=== PATIENT | male | born 1940 | race Caucasian/White ===

== ENCOUNTER 2019-04-19 17:18 | Emergency (ER) | payer OTHER, MEDICARE ==
[~2019-04-19] VITALS: Ht 188 cm; Wt 108.9 kg
[~2019-04-19 17:18] MED LIST: ACET325 PO; ASPI81CH PO; ATOR40TA PO; CALCAVITD PO; Calcium Carbon650 MG PO; DOCU100 PO; LAVAP17G PO; MELO7.5 PO; MULVITMIND PO; ONDA8 PO; OXYC5 PO; PANT40 PO; SENN187 PO; VENLAFAXINE HC150 MG PO; VENLAFAXINE HCL PO; XARELTO15 MG PO; Zoladex10.8 MG SC
[2019-04-19 19:02] LABS: Source, Urine Catheter
[2019-04-19 19:10] LABS: Bilirubin, Urine Neg (Neg); Blood, Urine 5+ (Neg); Glucose Qualitative, Urine Neg (Neg); Ketones, Urine 1+ (Neg); Leukocyte Esterase, Urine 2+ (Neg); Nitrite, Urine Pos (Neg); Protein, Urine 3+ (Neg); Urobilinogen, Urine NORM (Normal)
[2019-04-19 19:26] LABS: Appearance, Urine Cloudy (Clear); Color, Urine Red (P-Yellow)
[2019-04-19 19:29] LABS: Red Blood Cells, Urine TNTC /hpf (0-2); Squamous Epithelial Cells Not Seen /hpf (Few)
[2019-04-19 19:30] LABS: Bacteria Few /hpf
[2019-04-19 20:23] LABS: BASOPHILS ABSOLUTE AUTO 0.03 K/mm3 (0.00-0.23); BASOPHILS PERCENT AUTO 1 % (0-2); EOSINOPHILS ABSOLUTE AUTO 0.17 K/mm3 (0.00-0.68); EOSINOPHILS PERCENT AUTO 3 % (0-6); Hematocrit 38.2 % (37.0-53.0); Hemoglobin 12.2 g/dL (13.5-17.5); IMMATURE GRAN ABSOLUTE AUTO 0.05 K/mm3 (0.00-0.10); IMMATURE GRAN PERCENT AUTO 1 % (0-1); LYMPHOCYTES ABSOLUTE AUTO 0.95 K/mm3 (0.84-5.20); LYMPHOCYTES PERCENT AUTO 14 % (21-46); MONOCYTES ABSOLUTE AUTO 0.49 K/mm3 (0.16-1.47); MONOCYTES PERCENT AUTO 7 % (4-13); Mean Corpuscular HGB 28.7 pg (26.0-34.0); Mean Corpuscular HGB Conc 31.9 g/dL (31.5-36.5); Mean Corpuscular Volume 90 fL (80-100); Mean Platelet Volume 8.9 fL (9.1-12.4); NEUTROPHILS ABSOLUTE AUTO 4.96 K/mm3 (1.96-9.15); NEUTROPHILS PERCENT AUTO 74 % (41-73); Platelet Count 267 K/mm3 (150-400); RDW Coefficient Variation 14.1 % (11.7-14.2); RDW Standard Deviation 46.2 fL (35.1-46.3); Red Blood Cell Count 4.25 M/mm3 (4.30-5.90); White Blood Cell Count 6.65 K/mm3 (4.00-11.30)
[2019-04-19 20:38] LABS: Anion Gap 5 mmol/L (6-16); Blood Urea Nitrogen 23 mg/dL (8-24); CO2, Blood 28 mmol/L (21-32); Calcium, Blood 8.8 mg/dL (8.5-10.1); Chloride, Blood 104 mmol/L (98-108); Creatinine, Blood 0.96 mg/dL (0.60-1.20); Glomerular Filtration Rate >60 (60-); Glucose, Blood 95 mg/dL (70-99); Potassium, Blood 4.2 mmol/L (3.5-5.5); Sodium, Blood 137 mmol/L (136-145)
[2019-04-19] MEDS ORDERED: CEPH500 PO (22:12)
== END 2019-04-19 23:12 | disposition home or self-care (01) ==
LOC: ER 17:18
PROVIDERS: Emergency Medicine
DX: N39.0 Urinary tract infection, site not specified (principal); I10 Essential (primary) hypertension; J44.9 Chronic obstructive pulmonary disease, unspecified; Z79.899 Other long term (current) drug therapy; Z79.82 Long term (current) use of aspirin; Z87.891 Personal history of nicotine dependence
CPT/HCPCS: 36415; 51702; 74174; 80048; 81001; 85025; 87077; 87086; 87186; 96365-59; 99284-25; J0696; Q9967

== ENCOUNTER 2020-08-17 18:10 | Emergency (ER) | payer OTHER, MEDICARE ==
[~2020-08-17] VITALS: Ht 188 cm; Wt 90.7 kg
[~2020-08-17 18:10] MED LIST changes: +CEPH500 PO
[2020-08-17 20:17] LABS: Source, Urine Clean Catch
[2020-08-17 20:53] LABS: Bilirubin, Urine Neg (Neg); Blood, Urine 5+ (Neg); Glucose Qualitative, Urine Neg (Neg); Ketones, Urine Neg (Neg); Leukocyte Esterase, Urine 3+ (Neg); Nitrite, Urine Pos (Neg); Protein, Urine 2+ (Neg); Specific Gravity, Urine 1.015 (1.003-1.022); Urobilinogen, Urine NORM (Normal)
[2020-08-17 21:05] LABS: Appearance, Urine Cloudy (Clear); Color, Urine Yellow (P-Yellow)
[2020-08-17 21:06] LABS: Bacteria Many /hpf; Calcium Oxalate Crystals Few /hpf; Red Blood Cells, Urine 0-2 /hpf (0-2); Squamous Epithelial Cells Not Seen /hpf (Few); White Blood Cells, Urine TNTC /hpf (0-5)
[2020-08-17] MEDS ORDERED: CEFP200 PO (21:46)
== END 2020-08-17 21:58 | disposition home or self-care (01) ==
LOC: ER 18:10
PROVIDERS: Physician Assistant
DX: N39.0 Urinary tract infection, site not specified (principal); R32 Unspecified urinary incontinence; I10 Essential (primary) hypertension; J44.9 Chronic obstructive pulmonary disease, unspecified; Z79.899 Other long term (current) drug therapy; Z87.891 Personal history of nicotine dependence
CPT/HCPCS: 51701; 51798; 81001; 87077; 87086; 87186; 99283-25; A9270

== ENCOUNTER 2020-09-07 18:31 | Inpatient (IN) | payer OTHER, MEDICARE ==
[~2020-09-07] VITALS: Ht 182.9 cm; Wt 93.2 kg
[~2020-09-07 18:31] MED LIST changes: +CEFP200 PO
[2020-09-07 19:07] LABS: BASOPHILS ABSOLUTE AUTO 0.05 K/mm3 (0.00-0.23); BASOPHILS PERCENT AUTO 1 % (0-2); EOSINOPHILS ABSOLUTE AUTO 0.05 K/mm3 (0.00-0.68); EOSINOPHILS PERCENT AUTO 1 % (0-6); IMMATURE GRAN ABSOLUTE AUTO 0.06 K/mm3 (0.00-0.10); IMMATURE GRAN PERCENT AUTO 1 % (0-1); LYMPHOCYTES ABSOLUTE AUTO 1.24 K/mm3 (0.84-5.20); LYMPHOCYTES PERCENT AUTO 12 % (21-46); MONOCYTES ABSOLUTE AUTO 0.68 K/mm3 (0.16-1.47); MONOCYTES PERCENT AUTO 7 % (4-13); Mean Corpuscular HGB 27.9 pg (26.0-34.0); Mean Corpuscular HGB Conc 33.3 g/dL (31.5-36.5); Mean Corpuscular Volume 84 fL (80-100); Mean Platelet Volume 9.5 fL (9.1-12.4); NEUTROPHILS PERCENT AUTO 80 % (41-73); Platelet Count 297 K/mm3 (150-400); RDW Coefficient Variation 15.5 % (11.7-14.2); RDW Standard Deviation 47.1 fL (35.1-46.3); Red Blood Cell Count 5.01 M/mm3 (4.30-5.90); White Blood Cell Count 10.18 K/mm3 (4.00-11.30)
[2020-09-07 19:17] LABS: Alanine Aminotransfer (ALT/SGP 24 U/L (12-78); Albumin, Blood 3.4 g/dL (3.4-5.0); Albumin/Globulin Ratio 0.8 (0.8-1.8); Alk Phos 94 U/L (50-136); Anion Gap 8 mmol/L (6-16); Aspartate Aminotrans (AST/SGOT 35 U/L (12-37); Bilirubin, Total 0.8 mg/dL (0.1-1.0); Blood Urea Nitrogen 27 mg/dL (8-24); Bun/Creatinine Ratio 24.5 (12.0-20.0); CO2, Blood 24 mmol/L (21-32); Calcium, Blood 9.5 mg/dL (8.5-10.1); Chloride, Blood 102 mmol/L (98-108); Globulin, Blood 4.5 g/dL (2.2-4.0); Glomerular Filtration Rate >60 (60-); Glucose, Blood 90 mg/dL (70-99); Potassium, Blood 4.2 mmol/L (3.5-5.5); Sodium, Blood 134 mmol/L (136-145); Total Protein, Blood 7.9 g/dL (6.4-8.2)
[2020-09-07] MEDS ORDERED: Acerola C500 MG PO (19:32)
[2020-09-07] MEDS ORDERED: ALBU90OI INH (19:32)
[2020-09-07] MEDS ORDERED: FERSU300 PO (19:33)
[2020-09-07] MEDS ORDERED: CEFP200 PO (19:33)
[2020-09-07] MEDS ORDERED: STRIVERDI RESPIM4 G1 INH (19:34)
[2020-09-07] MEDS ORDERED: TRAZ50 PO (19:34)
[2020-09-07] MEDS ORDERED: VENL75ER PO (19:35)
[2020-09-08 05:10] LABS: BASOPHILS ABSOLUTE AUTO 0.04 K/mm3 (0.00-0.23); BASOPHILS PERCENT AUTO 0 % (0-2); EOSINOPHILS PERCENT AUTO 1 % (0-6); Hematocrit 39.5 % (37.0-53.0); Hemoglobin 12.8 g/dL (13.5-17.5); IMMATURE GRAN ABSOLUTE AUTO 0.05 K/mm3 (0.00-0.10); IMMATURE GRAN PERCENT AUTO 1 % (0-1); LYMPHOCYTES ABSOLUTE AUTO 1.16 K/mm3 (0.84-5.20); LYMPHOCYTES PERCENT AUTO 13 % (21-46); MONOCYTES ABSOLUTE AUTO 0.63 K/mm3 (0.16-1.47); MONOCYTES PERCENT AUTO 7 % (4-13); Mean Corpuscular HGB 27.6 pg (26.0-34.0); Mean Corpuscular HGB Conc 32.4 g/dL (31.5-36.5); Mean Corpuscular Volume 85 fL (80-100); NEUTROPHILS ABSOLUTE AUTO 7.15 K/mm3 (1.96-9.15); NEUTROPHILS PERCENT AUTO 78 % (41-73); Platelet Count 247 K/mm3 (150-400); RDW Coefficient Variation 15.5 % (11.7-14.2); Red Blood Cell Count 4.64 M/mm3 (4.30-5.90); White Blood Cell Count 9.13 K/mm3 (4.00-11.30)
[2020-09-08 05:28] LABS: Alanine Aminotransfer (ALT/SGP 20 U/L (12-78); Albumin, Blood 3.1 g/dL (3.4-5.0); Albumin/Globulin Ratio 0.8 (0.8-1.8); Alk Phos 81 U/L (50-136); Anion Gap 8 mmol/L (6-16); Aspartate Aminotrans (AST/SGOT 10 U/L (12-37); Bilirubin, Total 0.5 mg/dL (0.1-1.0); Blood Urea Nitrogen 26 mg/dL (8-24); Bun/Creatinine Ratio 21.8 (12.0-20.0); CO2, Blood 25 mmol/L (21-32); Calcium, Blood 8.8 mg/dL (8.5-10.1); Chloride, Blood 103 mmol/L (98-108); Creatinine, Blood 1.19 mg/dL (0.60-1.20); Globulin, Blood 3.8 g/dL (2.2-4.0); Glomerular Filtration Rate >60 (60-); Glucose, Blood 95 mg/dL (70-99); Sodium, Blood 136 mmol/L (136-145); Total Protein, Blood 6.9 g/dL (6.4-8.2)
--- NOTE | 2020-09-08 06:00 | NUR ---
SHIFT SUMMARY: VLADIMIR IS A&OX3. VSS, NO ACUTE EVENTS OVERNIGHT. HE IS ABLE TO MAKE HIS NEEDS KNOWN. HE STATES THAT FOR ABOUT A MONTH HE HAS NOT URINATED DURING THE DAY AT ALL. HE STATES THAT HE GOES TO BED "DRY A BONE" AND WAKES UP "SOAKED" AND THAT HE HAS NOT BEEN IN TO SEE HIS PRIMARY DOCTOR SINCE THIS BEGAN. HE IS PLEASANT AND COOPERATIVE WITH CARE. ENEMA GIVEN, NO RESULTS YET. ATTENDS IN PLACE. HE IS INCONTINENT OF BLADDER AND BOWEL. HE REPORTS FEELING DEPRESSED OVER HIS DECLINING HEALTH AND HAS THOUGHT ABOUT DYING BUT DENIES ANY PLANS AND STATES THAT HE WOULD NOT TAKE HIS OWN LIFE, HE JUST FEELS "USELESS" SINCE HE NOW REQUIRES CARE. HE DOES HAVE A GOOD SENSE OF HUMOR AND JOKES/SMILES WITH STAFF AND FAMILY. HE USES THE CALL LIGHT APPROPRIATELY. BED ALARM ON FOR SAFETY, ALTHOUGH HIS DAUGHTER REPORTS THAT HE IS UNABLE TO WALK ANY LONGER. HOWEVER, HIS DAUGHTER REPORTED THAT HE WEARS AN ATTENDS AT HOME AND HE DENIED IT, TWICE. HE IS TOLERATING ICE CHIPS WELL AND REPORTS ADEQUATE PAIN CONTROL WTIH APAP AND 25 MCG OF FENTANYL. HE IS LYING IN BED WITH THE CALL LIGHT IN REACH. WILL REPORT TO DAY SHIFT RN.
--- NOTE | 2020-09-08 17:52 | NUR ---
SUMMARY PT HAD 2 LARGE BM'S TODAY, DIET ADVANCED TO REGULAR PER DR. DARBY, PT/OT EVAL TODAY, UP WITH 2 PERSON ASSIST TO PIVOT TRANSFER, DENIES ANY PAIN OR ANY DISCOMFORT, NO ACUTE CHANGES THIS SHIFT.
--- NOTE | 2020-09-09 05:17 | NUR ---
PT VSS T/O NIGHT; HR SINUS W/PVC PER TELE MONITOR. ABD SOFT, NON TENDER, PT HAD NO BM THIS SHIFT; HE REPORTS HAVING HAD SEVERAL DURING DAY. PT INCONTINENT OF URINE; ATTENDS CHANGED PRN. PT REPOSITIONING SELF IN BED, IS USING CALL LIGHT FOR ASSISTANCE; BED ALARM ON FOR SAFETY. IV ABX CONT PER ORDERS. PLAN TO CONT PT/OT AND AWAIT DC PLANNING.
--- NOTE | 2020-09-09 11:18 | NUR ---
PHYSICAL THERAPY WORKED WITH PT AT ABOUT 1030 AND PT CLEARED TO GO HOME. DR. MYERS NOTIFIED AND PT DAUGHTER AND SON IN LAW ALSO NOTIFIED OF PLAN FOR DC AT 1130. PT DAUGHTER PLANS TO BE PRESENT FOR DISCHARGE PLANNING AND EDUCATION THIS AFTERNOON. WILL CTM
[2020-09-09] MEDS ORDERED: MIRALAX17 GM PO (13:03)
--- NOTE | 2020-09-09 17:18 | NUR ---
DISCHARGE: PT ZAC AND SON IN LAW IN ROOM AT ABOUT 1400 AND REQUESTED TO SPEAK WITH DR. MYERS BEFORE PT DISCHARGE, DR. MYERS NOTIFIED AND SPOKE WITH FAMILY. SEB FROM DISCHARGE PLANNING ARRANGED HOME HEALTH AND FAMILY IS AWARE THAT THEY SHOULD BE RECEIVING A CALL FROM [employer]. PACKET PRINTED AND PT AND FAMILY EDUCATED. MEDS FAXED TO [facility]. PT AND FAMILY VERBALIZED UNDERSTANDING AND THAT THEY HAVE A WALKER, COMMODE, AND WHEELCHAIR AT HOME FOR THE PT. IV'S DC'D BY SUZY FRANCO RN. PT LEFT UNIT WITH FAMILY VIA PT OWN WHEELCHAIR AT ABOUT 1530.
== END 2020-09-09 15:30 | disposition home or self-care (01) | DRG 394 ==
LOC: ER 18:31 → SURS 21:27
PROVIDERS: Emergency Medicine; ADMIT Internal Medicine
DX: K63.3 Ulcer of intestine (principal); K55.9 Vascular disorder of intestine, unspecified; E87.1 Hypo-osmolality and hyponatremia; K56.41 Fecal impaction; J44.9 Chronic obstructive pulmonary disease, unspecified; M45.9 Ankylosing spondylitis of unspecified sites in spine; F32.9 Major depressive disorder, single episode, unspecified; I10 Essential (primary) hypertension; Z90.89 Acquired absence of other organs; Z98.890 Other specified postprocedural states; Z90.79 Acquired absence of other genital organ(s); Z87.891 Personal history of nicotine dependence; Z85.46 Personal history of malignant neoplasm of prostate; Z79.899 Other long term (current) drug therapy; Z74.01 Bed confinement status; Z86.711 Personal history of pulmonary embolism; Z79.01 Long term (current) use of anticoagulants
CPT/HCPCS: 36415; 51701; 80053; 83605; 85025; 94760; 96374; 96375; 97162; 97165; 97530; 99285-25; A9270; J0696; J3010; J7030

== ENCOUNTER 2021-02-06 11:07 | Inpatient (IN) | payer OTHER ==
[~2021-02-06] VITALS: Ht 190.5 cm; Wt 113.4 kg
[~2021-02-06 11:07] MED LIST changes: +ALBU90OI INH; +Acerola C500 MG PO; +FERSU300 PO; +MIRALAX17 GM PO; +STRIVERDI RESPIM4 G1 INH; +TRAZ50 PO; +VENL75ER PO
[2021-02-06 11:50] LABS: BASOPHILS ABSOLUTE AUTO 0.03 K/mm3 (0.00-0.23); BASOPHILS PERCENT AUTO 0 % (0-2); EOSINOPHILS ABSOLUTE AUTO 0.01 K/mm3 (0.00-0.68); EOSINOPHILS PERCENT AUTO 0 % (0-6); Hematocrit 40.1 % (37.0-53.0); Hemoglobin 13.2 g/dL (13.5-17.5); IMMATURE GRAN PERCENT AUTO 1 % (0-1); LYMPHOCYTES ABSOLUTE AUTO 0.67 K/mm3 (0.84-5.20); LYMPHOCYTES PERCENT AUTO 6 % (21-46); MONOCYTES ABSOLUTE AUTO 0.64 K/mm3 (0.16-1.47); MONOCYTES PERCENT AUTO 5 % (4-13); Mean Corpuscular HGB 28.1 pg (26.0-34.0); Mean Corpuscular HGB Conc 32.9 g/dL (31.5-36.5); Mean Corpuscular Volume 86 fL (80-100); Mean Platelet Volume 10.2 fL (9.1-12.4); NEUTROPHILS ABSOLUTE AUTO 10.37 K/mm3 (1.96-9.15); NEUTROPHILS PERCENT AUTO 88 % (41-73); Platelet Count 225 K/mm3 (150-400); RDW Coefficient Variation 14.6 % (11.7-14.2); Red Blood Cell Count 4.69 M/mm3 (4.30-5.90); White Blood Cell Count 11.82 K/mm3 (4.00-11.30)
[2021-02-06 11:54] LABS: Alanine Aminotransfer (ALT/SGP 23 U/L (12-78); Albumin, Blood 2.6 g/dL (3.4-5.0); Albumin/Globulin Ratio 0.6 (0.8-1.8); Alk Phos 112 U/L (50-136); Anion Gap 7 mmol/L (6-16); Aspartate Aminotrans (AST/SGOT 25 U/L (12-37); Bilirubin, Total 0.7 mg/dL (0.1-1.0); Blood Urea Nitrogen 16 mg/dL (8-24); Bun/Creatinine Ratio 20.1 (12.0-20.0); CO2, Blood 23 mmol/L (21-32); Calcium, Blood 9.1 mg/dL (8.5-10.1); Chloride, Blood 101 mmol/L (98-108); Globulin, Blood 4.5 g/dL (2.2-4.0); Glomerular Filtration Rate >60 (60-); Glucose, Blood 84 mg/dL (70-99); Potassium, Blood 3.7 mmol/L (3.5-5.5); Sodium, Blood 131 mmol/L (136-145); Total Protein, Blood 7.1 g/dL (6.4-8.2); Troponin I <0.015 ng/mL (0.000-0.040)
[2021-02-06 15:05] LABS: Source, Urine Voided
[2021-02-06 15:06] LABS: Base Excess Venous -3.4 mmol/L; Bicarbonate Venous 21.8 mmol/L (24.0-30.0); PO2 Venous 59.5 mmHg (38-42); pH Blood Venous 7.39 (7.34-7.37)
[2021-02-06 15:11] LABS: Appearance, Urine Hazy (Clear); Bilirubin, Urine Neg (Neg); Blood, Urine 2+ (Neg); Color, Urine Amber (P-Yellow); Glucose Qualitative, Urine Neg (Neg); Ketones, Urine 4+ (Neg); Leukocyte Esterase, Urine 2+ (Neg); Nitrite, Urine Neg (Neg); Protein, Urine 2+ (Neg); Urobilinogen, Urine NORM (Normal)
[2021-02-06 15:30] LABS: Amorphous Light (0-Heavy); Bacteria Mod /hpf; Squamous Epithelial Cells Few /hpf (Few)
[2021-02-06] MEDS ORDERED: VENL75ER PO (15:39)
[2021-02-06 16:26] LABS: SARS-Cov-2 (COVID-19) PCR, MMC NEGATIVE (NEGATIVE)
--- NOTE | 2021-02-06 16:28 | NUR ---
pt in for possible uti, having ectopy and increased heart rate. Recent falls. pt daughter needing some help wiht plan of care. He is a [facility] with [facility]. He lives on his daughters property in a cottage near the house. She had care givers and they did not like them so they staopped. pt has been managing meds butshe is getting worse so advised her to take over medications and suggest shee work with goran the home care nurse to get some caregiver help in the [facility] for a few hours for meds and getting them set up for the day. she want to try to keep them home. Advised if dementia worsening might not be possible. gave her out number for follow up support. she is showing caregiver stress. She is determined to keep her parents in the home. suggested she call the college and see if any nursing students need very apartment maintenance work. Or ask macy if they now someone reliable who needs some work.
[2021-02-07 05:10] LABS: BASOPHILS ABSOLUTE AUTO 0.04 K/mm3 (0.00-0.23); BASOPHILS PERCENT AUTO 0 % (0-2); EOSINOPHILS ABSOLUTE AUTO 0.01 K/mm3 (0.00-0.68); EOSINOPHILS PERCENT AUTO 0 % (0-6); Hematocrit 36.6 % (37.0-53.0); Hemoglobin 12.1 g/dL (13.5-17.5); IMMATURE GRAN ABSOLUTE AUTO 0.14 K/mm3 (0.00-0.10); IMMATURE GRAN PERCENT AUTO 1 % (0-1); LYMPHOCYTES ABSOLUTE AUTO 0.63 K/mm3 (0.84-5.20); LYMPHOCYTES PERCENT AUTO 6 % (21-46); MONOCYTES ABSOLUTE AUTO 0.74 K/mm3 (0.16-1.47); MONOCYTES PERCENT AUTO 7 % (4-13); Mean Corpuscular HGB 28.3 pg (26.0-34.0); Mean Corpuscular HGB Conc 33.1 g/dL (31.5-36.5); Mean Corpuscular Volume 86 fL (80-100); Mean Platelet Volume 10.1 fL (9.1-12.4); NEUTROPHILS ABSOLUTE AUTO 9.07 K/mm3 (1.96-9.15); NEUTROPHILS PERCENT AUTO 85 % (41-73); Platelet Count 228 K/mm3 (150-400); RDW Coefficient Variation 14.8 % (11.7-14.2); Red Blood Cell Count 4.28 M/mm3 (4.30-5.90); White Blood Cell Count 10.63 K/mm3 (4.00-11.30)
--- NOTE | 2021-02-07 05:54 | NUR ---
SHIFT SUMMARY PT ARRIVED TO THE UNIT AT 20:00 VIA ER GURNEY AND WAS TRANSFERRED TO THE MEDICAL BED WITH A SLIDE SHEET AND ASSISTANCE OF TWO STAFF MEDICAL STAFF. AT 2O30, PT REMOVED HIS IV. VLADIMIR IS ORIENTED TO HIMSELF AND FAMILY ONLY. HE HAS A HX OF GROUND LEVEL FALLS RECENTY, AND WITH CONFUSION SECONDARY TO UTI, IS A HIGH FALL RISK. BILAT SOFT WRIST RESTRAINT ORDER RECEIVED FROM DR. VICTORIA AT 2100 VIA TELEPHONE. HAD SEVERAL BOWEL MOVMENTS THIS SHIFT, SOFT TO HARD. BED IN LOWEST POSITION, BED ALARM ON, MONITORED FREQUENTLY BY NURSING STAFF. VSS ON ROOM AIR.
[2021-02-07 06:05] LABS: Alanine Aminotransfer (ALT/SGP 20 U/L (12-78); Albumin, Blood 2.3 g/dL (3.4-5.0); Albumin/Globulin Ratio 0.5 (0.8-1.8); Alk Phos 122 U/L (50-136); Anion Gap 8 mmol/L (6-16); Aspartate Aminotrans (AST/SGOT 21 U/L (12-37); Bilirubin, Total 0.7 mg/dL (0.1-1.0); Blood Urea Nitrogen 13 mg/dL (8-24); Bun/Creatinine Ratio 16.1 (12.0-20.0); CO2, Blood 24 mmol/L (21-32); Calcium, Blood 8.7 mg/dL (8.5-10.1); Chloride, Blood 97 mmol/L (98-108); Creatinine, Blood 0.81 mg/dL (0.60-1.20); Globulin, Blood 4.2 g/dL (2.2-4.0); Glomerular Filtration Rate >60 (60-); Glucose, Blood 88 mg/dL (70-99); Potassium, Blood 3.4 mmol/L (3.5-5.5); Sodium, Blood 129 mmol/L (136-145); Total Protein, Blood 6.5 g/dL (6.4-8.2)
--- NOTE | 2021-02-07 06:08 | NUR ---
PINK HEEL PROTECTORS APPLIED TO BILAT FEET.
--- NOTE | 2021-02-07 11:25 | NUR ---
Pt resting in bed upon arrival. Pt attempts verbal communication and mumbles 2 incoharent words. Pt closes his eyes and does not open them again as this RN attempted to contiinue visit. Spoke with Primary RN Allison and discussed case. Pt is lethargic and confused. Called and left message with Pt's daughter Alden with request for a return phone call. [facility] with [facility] POLST and [employer]. Pt completed POLST last month with PCP. Pt's wishes are DNR. Called and spoke with Pt's daughter Berenice who is listed as one of the healthcare decision makers on AD. Engaged in therapeutic discussion regarding Pt's current code status and wishes lined out on POLST. Discussed the importance of following Pt's wishes. Berenice reports she will call Alden and Pt's spouse Prudence to discuss further. Berenice reports she or her sister will call Palliative Care back. Palliative Care will remain available.
[2021-02-07 13:01] LABS: Adenovirus F 40/41 Not Detected (NOT DETECT); Astrovirus Not Detected (NOT DETECT); Campylobacter Sp Not Detected (NOT DETECT); Cryptosporidium Not Detected (NOT DETECT); Cyclospora Cayetanensis Not Detected (NOT DETECT); E. Coli O157 Not Detected (NOT DETECT); Entamoeba Histolytica Not Detected (NOT DETECT); Enteroaggregative E. coli-EAEC Not Detected (NOT DETECT); Enteropathogenic E. coli-EPEC Not Detected (NOT DETECT); Enterotoxigenic E. coli-ETEC Not Detected (NOT DETECT); Giardia Lamblia Not Detected (NOT DETECT); Norovirus GI/GII Not Detected (NOT DETECT); Plesiomonas Shigelloides Not Detected (NOT DETECT); Rotavirus A Not Detected (NOT DETECT); Salmonella Sp Not Detected (NOT DETECT); Sapovirus Not Detected (NOT DETECT); Shiga Toxin-prod E. coli-STEC Not Detected (NOT DETECT); Shigella/Enteroin E. coli-EIEC Not Detected (NOT DETECT); Vibrio Cholerae Not Detected (NOT DETECT); Vibrio Sp Not Detected (NOT DETECT); Yersinia Enterocolitica Not Detected (NOT DETECT)
--- NOTE | 2021-02-07 18:40 | NUR ---
PATIENT IS ALERT AND DISORIENTED. HE BECOMES AGITATED AT TIMES AND ATTEMPTS TO GET OUT OF BED AND PULLS AT HIS LINES. BILATERAL WRIST RESTRAINTS ARE IN PLACE AT THIS TIME. NS AT 100 ML/HR. IN CONTACT PRECAUTIONS FOR C-DIFF. THE PATIENT'S POLST WAS BROUGHT IN BY HIS FAMILY TODAY AND PLACE DON HIS CHART. THE PATIENT IS NOW A DNR. WILL CONTINUE TO MONITOR
--- NOTE | 2021-02-08 00:03 | NUR ---
D/C'D RETRAINTS AT THIS TIME. PT AGREED TO LEAVE LINES ALONE AND DEMONSTRATED ABILITY TO USE CALL LIGHT. HE'S MORE ORIENTED AT THIS TIME AND COOPERATIVE W/CARE. HE IS AWARE OF BEHAVIOR THAT WOULD WARRANT RESTRAINTS TO PROTECT LINES AND PREVENT FALLS/HARM TO SELF. BED ALARM ON AND LINES CONCEALED.
[2021-02-08] MEDS ORDERED: Vitamin B-121000 MCG PO (01:53)
[2021-02-08] MEDS ORDERED: Acetaminophen650 M1 PO (01:53)
[2021-02-08] MEDS ORDERED: EUCERIN ADVANCE85 GM TOP (01:54)
[2021-02-08] MEDS ORDERED: MIRALAX17 GM PO (01:55)
[2021-02-08] MEDS ORDERED: MULVITA PO (01:55)
[2021-02-08] MEDS ORDERED: SENN187 PO (01:57)
[2021-02-08] MEDS ORDERED: METAMUCIL POWD798 GM PO (01:57)
[2021-02-08] MEDS ORDERED: ZINC OXIDE57 GM TOP (01:59)
--- NOTE | 2021-02-08 03:42 | NUR ---
SUMMARY: PT A/OX3 BUT FORGETFULL AND IMPULSIVE/AGITATED AT TIMES. SOFT WRIST RESTRAINTS WERE CAUSING PT TO BE MORE ANXIOUS AND COMBATIVE. HE WAS TRIALED OUT OF RESTRAINTS AT 0000 AFTER BEING COOPERATIVE W/CARE, FOLLOWING INSTRUCTION AND SUCCESSFULLY DEMONSTRATED USE OF CALL LIGHT. LINES WERE CONCELED AND BED ALARM ON FOR PT SAFETY W/HEIGHTENED ROUNDING ATTENDED TO. HE CONT'S TO HAVE FREQ LARGE INCONTINENT STOOLS, PASTY/GRITTY BM'S OBSERVED AND ATTENDS/LINEN CHANGED PRN. CONTACT ISO FOR C.DIFF. NS INFUSES AT 100 MLS/HR AND IV ABX RECIEVED PER EMAR. PT DENIES PAIN/COMPLAINTS. NO ACUTE CHANGES, VSS AND AFEBRILE. WCTM AND REPORT TO DAY RN.
[2021-02-08 08:26] LABS: Albumin, Blood 1.9 g/dL (3.4-5.0); Anion Gap 11 mmol/L (6-16); Blood Urea Nitrogen 10 mg/dL (8-24); Bun/Creatinine Ratio 15.3 (12.0-20.0); CO2, Blood 19 mmol/L (21-32); Calcium, Blood 8.4 mg/dL (8.5-10.1); Chloride, Blood 102 mmol/L (98-108); Creatinine, Blood 0.65 mg/dL (0.60-1.20); Glomerular Filtration Rate >60 (60-); Glucose, Blood 98 mg/dL (70-99); Phosphorus, Blood 2.1 mg/dL (2.5-4.9); Potassium, Blood 3.2 mmol/L (3.5-5.5); Sodium, Blood 132 mmol/L (136-145)
--- NOTE | 2021-02-08 18:42 | NUR ---
VSS. AFEBRILE. NO C/O PAIN. INCONTINENT WITH AUO. CONTINUES TO HAVE LOOSE STOOLS, INCONTINENCE CARE PRN. HAYLIE (MANU[facility]ENE) FOLLOWED UP- WILL CONTINUE TO FOLLOW UNTIL D/C. KPHOSH RIDER GIVEN. WORKED WITH PT AND OT- UP IN CHAIR X HRS- MIN ASSIST WITH GAIT BELT AND FWW. FREQUENT ROUNDS TO ENSURE PT SAFETY. PT IN NO APPARENT DISTRESS AT THIS TIME. WILL CONTINUE TO MONITOR UNTIL TRANSFER OF CARE TO ONCOMING RN.
--- NOTE | 2021-02-09 03:22 | NUR ---
SHIFT SUMMARY NO ACUTE CHANGES TO REPORT THIS SHIFT. PT HAS RESTED MOST OF THE NIGHT, AND HAS NOT ATTEMPTED TO GET OOB WITHOUT ASSISTANCE. PT IS A/OX3 BUT IS VERY FORGETFUL. PT WILL ASK QUESTION AND THEN ASK THE SAME QUESTION WITHIN A SMALL PERIOD OF TIME. PT VITALS ARE STABLE. IVF INFUSING ORDERED. RESTFUL NIGHT. POSSIBLE D/C TODAY. BED IN LOWEST POSITION, CALL LIGHT WITHIN REACH.
[2021-02-09 06:54] LABS: BASOPHILS ABSOLUTE AUTO 0.06 K/mm3 (0.00-0.23); BASOPHILS PERCENT AUTO 1 % (0-2); EOSINOPHILS ABSOLUTE AUTO 0.14 K/mm3 (0.00-0.68); EOSINOPHILS PERCENT AUTO 2 % (0-6); Hemoglobin 11.3 g/dL (13.5-17.5); IMMATURE GRAN PERCENT AUTO 4 % (0-1); LYMPHOCYTES ABSOLUTE AUTO 0.86 K/mm3 (0.84-5.20); LYMPHOCYTES PERCENT AUTO 13 % (21-46); MONOCYTES ABSOLUTE AUTO 0.59 K/mm3 (0.16-1.47); MONOCYTES PERCENT AUTO 9 % (4-13); Mean Corpuscular HGB 28.5 pg (26.0-34.0); Mean Corpuscular HGB Conc 33.2 g/dL (31.5-36.5); Mean Corpuscular Volume 86 fL (80-100); Mean Platelet Volume 9.7 fL (9.1-12.4); NEUTROPHILS ABSOLUTE AUTO 4.87 K/mm3 (1.96-9.15); NEUTROPHILS PERCENT AUTO 71 % (41-73); Platelet Count 285 K/mm3 (150-400); RDW Coefficient Variation 14.8 % (11.7-14.2); RDW Standard Deviation 46.4 fL (35.1-46.3); Red Blood Cell Count 3.97 M/mm3 (4.30-5.90); White Blood Cell Count 6.82 K/mm3 (4.00-11.30)
[2021-02-09 07:09] LABS: Albumin, Blood 1.9 g/dL (3.4-5.0); Anion Gap 5 mmol/L (6-16); Blood Urea Nitrogen 8 mg/dL (8-24); Bun/Creatinine Ratio 10.2 (12.0-20.0); CO2, Blood 26 mmol/L (21-32); Calcium, Blood 8.3 mg/dL (8.5-10.1); Chloride, Blood 106 mmol/L (98-108); Creatinine, Blood 0.78 mg/dL (0.60-1.20); Glomerular Filtration Rate >60 (60-); Glucose, Blood 106 mg/dL (70-99); Magnesium, Blood 2.2 mg/dL (1.6-2.4); Phosphorus, Blood 2.5 mg/dL (2.5-4.9); Potassium, Blood 3.4 mmol/L (3.5-5.5); Sodium, Blood 137 mmol/L (136-145)
[2021-02-09] MEDS ORDERED: VISBIOME 112.51 EACH PO (11:12)
[2021-02-09] MEDS ORDERED: CEPH500 PO (11:13)
== END 2021-02-09 14:32 | disposition home health service (06) | DRG 689 ==
LOC: ER 11:07 → MEDS 11:08 → ERHOLD 11:08 → ER 12:15 → MEDS 19:33
PROVIDERS: Emergency Medicine; Internal Medicine; ADMIT Hospitalist
DX: N39.0 Urinary tract infection, site not specified (principal); G93.41 Metabolic encephalopathy; E87.1 Hypo-osmolality and hyponatremia; Z20.822 Contact with and (suspected) exposure to COVID-19; E86.0 Dehydration; Z23 Encounter for immunization; J44.9 Chronic obstructive pulmonary disease, unspecified; F32.A Depression, unspecified; Z98.49 Cataract extraction status, unspecified eye; Z98.890 Other specified postprocedural states; I10 Essential (primary) hypertension; G62.9 Polyneuropathy, unspecified; B95.4 Other streptococcus as the cause of diseases classified elsewhere; M45.9 Ankylosing spondylitis of unspecified sites in spine; Z79.899 Other long term (current) drug therapy; Z86.711 Personal history of pulmonary embolism; Z90.49 Acquired absence of other specified parts of digestive tract; I49.3 Ventricular premature depolarization
CPT/HCPCS: 0097U; 36415; 51701; 70450; 71045; 72070; 72125; 80053; 80069; 81001; 82803; 83735; 84145; 84484; 85025; 87040; 87086; 87324; 93005; 93010; 96372; 96376; 97162; 97530; 99285-25; A9270; G0378; J0696; J1650; J7030; J7060; U0004

== ENCOUNTER 2021-02-15 18:45 | Observation (INO) | payer OTHER ==
[~2021-02-15] VITALS: Ht 177.8 cm; Wt 90.7 kg
[~2021-02-15 18:45] MED LIST changes: +ACET500 PO; +EUCERIN ADVANCE85 GM TOP; +Hair, Skin & N1 EACH PO; +METAMUCIL POWD798 GM PO; +STIOLTO RESPIMAT4 G1 INH; -STRIVERDI RESPIM4 G1 INH; +VISBIOME 112.51 EACH PO; +ZINC OXIDE57 GM TOP
[2021-02-15 20:17] LABS: BASOPHILS ABSOLUTE AUTO 0.05 K/mm3 (0.00-0.23); BASOPHILS PERCENT AUTO 1 % (0-2); EOSINOPHILS ABSOLUTE AUTO 0.01 K/mm3 (0.00-0.68); EOSINOPHILS PERCENT AUTO 0 % (0-6); Hematocrit 35.9 % (37.0-53.0); Hemoglobin 11.6 g/dL (13.5-17.5); IMMATURE GRAN ABSOLUTE AUTO 0.08 K/mm3 (0.00-0.10); IMMATURE GRAN PERCENT AUTO 1 % (0-1); LYMPHOCYTES ABSOLUTE AUTO 1.17 K/mm3 (0.84-5.20); LYMPHOCYTES PERCENT AUTO 11 % (21-46); MONOCYTES ABSOLUTE AUTO 0.91 K/mm3 (0.16-1.47); MONOCYTES PERCENT AUTO 9 % (4-13); Mean Corpuscular HGB 28.1 pg (26.0-34.0); Mean Corpuscular HGB Conc 32.3 g/dL (31.5-36.5); Mean Corpuscular Volume 87 fL (80-100); NEUTROPHILS ABSOLUTE AUTO 8.16 K/mm3 (1.96-9.15); NEUTROPHILS PERCENT AUTO 79 % (41-73); Platelet Count 468 K/mm3 (150-400); RDW Standard Deviation 48.4 fL (35.1-46.3); Red Blood Cell Count 4.13 M/mm3 (4.30-5.90); White Blood Cell Count 10.38 K/mm3 (4.00-11.30)
[2021-02-15 20:37] LABS: Alanine Aminotransfer (ALT/SGP 31 U/L (12-78); Albumin, Blood 2.2 g/dL (3.4-5.0); Albumin/Globulin Ratio 0.4 (0.8-1.8); Alk Phos 131 U/L (50-136); Anion Gap 3 mmol/L (6-16); Aspartate Aminotrans (AST/SGOT 26 U/L (12-37); Bilirubin, Total 0.7 mg/dL (0.1-1.0); Blood Urea Nitrogen 15 mg/dL (8-24); Bun/Creatinine Ratio 18.7 (12.0-20.0); CO2, Blood 29 mmol/L (21-32); Calcium, Blood 9.2 mg/dL (8.5-10.1); Chloride, Blood 100 mmol/L (98-108); Globulin, Blood 4.9 g/dL (2.2-4.0); Glomerular Filtration Rate >60 (60-); Glucose, Blood 93 mg/dL (70-99); Potassium, Blood 4.1 mmol/L (3.5-5.5); Salicylate <1.7 mg/dL (2.8-20.0); Sodium, Blood 132 mmol/L (136-145); Total Protein, Blood 7.1 g/dL (6.4-8.2)
[2021-02-15 20:42] LABS: Acetaminophen, Random <2.0 ug/mL (10.0-30.0); Ethanol (Alcohol), Blood, Med <3 mg/dL
[2021-02-15 22:37] LABS: Influenza A, PCR NEGATIVE (NEGATIVE); Influenza B, PCR NEGATIVE (NEGATIVE); Resp Syncytial Virus, PCR NEGATIVE (NEGATIVE); SARS-Cov-2 (COVID-19) PCR, MMC NEGATIVE (NEGATIVE)
[2021-02-16] MEDS ORDERED: Vitamin B Comple1 EA PO (12:35)
== END 2021-02-16 16:00 | disposition home or self-care (01) ==
LOC: ER 18:45 → EOR 18:46
PROVIDERS: ADMIT Student in an Organized Health Care Education/Training Program
DX: F33.9 Major depressive disorder, recurrent, unspecified (principal); J44.9 Chronic obstructive pulmonary disease, unspecified; I10 Essential (primary) hypertension; E78.5 Hyperlipidemia, unspecified; Z86.711 Personal history of pulmonary embolism; Z79.899 Other long term (current) drug therapy; Z87.891 Personal history of nicotine dependence; Z20.822 Contact with and (suspected) exposure to COVID-19
CPT/HCPCS: 0241U; 36415; 80053; 84436; 85025; 86592; 93005; 93010; 99285-25; A9270; G0378; G0480; Q3014